=== PATIENT | female | born 1935 | race Caucasian/White ===

== ENCOUNTER 2017-06-03 15:18 | Emergency (ER) | payer MEDICARE, OTHER ==
[~2017-06-03] VITALS: Ht 162.6 cm; Wt 58.7 kg
[2017-06-03 15:26] VITALS: BP 128/60; PULSE 82; RESP 18; TEMP 97.6; O2SAT 97
[2017-06-03] MEDS ORDERED: MECLIZINE HCL 25 MG TAB PO ONE (16:30)
[2017-06-03] MEDS ORDERED: CALC1TAB87 PO (16:42)
[2017-06-03] MEDS ORDERED: ATOR20TA15 PO (16:42)
[2017-06-03] MEDS ORDERED: IRBE300T11 PO (16:42)
[2017-06-03] MEDS ORDERED: PANT40TA3 PO (16:42)
[2017-06-03] MEDS ORDERED: ESCI10TA PO (16:42)
[2017-06-03] MEDS ORDERED: LEVO75TA3 PO (16:42)
--- NOTE | 2017-06-03 17:43 | RADRPT ---
EXAM DATE/TIME: 06/03/2017 17:20 [place] COMPARISON: No previous studies available for comparison. INDICATIONS : Fall. New onset nausea. RADIATION DOSE: 62.79 CTDIvol (mGy) MEDICAL HISTORY : Hypercholesterolemia. Hypertension. Gastroesophageal reflux disease.Depression. SURGICAL HISTORY : Hysterectomy.Appendectomy. ENCOUNTER: Initial ACUITY: 3 days PAIN SCALE: 2/10 LOCATION: Left brow area. TECHNIQUE: Multiple contiguous axial images were obtained of the head. Using automated exposure control and adj ustment of the mA and/or kV according to patient size, radiation dose was kept as low as reasonably a chievable to obtain optimal diagnostic quality images. DICOM format image data is available electro nically for review and comparison. FINDINGS: CEREBRUM: The ventricles are normal for age. No evidence of midline shift, mass lesion, hemorrhage or acute in farction. No extra-axial fluid collections are seen. POSTERIOR FOSSA: The cerebellum and brainstem are intact. The 4th ventricle is midline. The cerebellopontine angle i s unremarkable. EXTRACRANIAL: The visualized portion of the orbits is intact. SKULL: The calvaria is intact. No evidence of skull fracture. CONCLUSION: No acute disease. No evidence of acute infarct, hemorrhage, mass or edema. Jose Manuel Sykes MD on June 03, 2017 at 17:40 Board Certified Radiologist. This report was verified electronically.
[2017-06-03] MEDS ORDERED: MECL-62 PO (17:56)
--- NOTE | 2017-06-03 17:56 | PD ---
HPI Chief Complaint: Headache Time Seen by Provider: 16:19 Travel History International Travel<30 days: No Contact w/Intl Traveler<30days: No Traveled to known affect area: No History of Present Illness HPI This is an 81-year-old female who presents to the emergency department having had a fall 3 days ago hitting her head on the left side with a persistent headache, dull, mild, intermittent, associated with dizziness and lightheadedness. She is not vomited. She didn't lose consciousness. She's been putting off coming to the emergency department because her granddaughter had an event she really wanted to go to. She is not on any blood thinners. PFSH Past Medical History Depression: Yes High Cholesterol: Yes GERD: Yes Hypertension: Yes Thyroid Disease: Yes ?: Not Past Surgical History Appendectomy: Yes Hysterectomy: Yes Social History Alcohol Use: No Tobacco Use: No Substance Use: No Allergies-Medications (Allergen,Severity, Reaction): Uncoded Allergies: intravol (Allergy, Unknown, 06/03/17) Reported Meds & Prescriptions Reported Meds & Active Scripts Active Reported Atorvastatin (Atorvastatin Calcium) 20 Mg Tab 20 Mg PO HS Pantoprazole (Pantoprazole Sodium) 40 Mg Tab 40 Mg PO BID Levothyroxine (Levothyroxine Sodium) 75 Mcg Tab 75 Mcg PO DAILY Irbesartan 300 Mg Tab 300 Mg PO DAILY Escitalopram (Escitalopram Oxalate) 10 Mg Tab 10 Mg PO DAILY Calcium 600 with Vitamin D (Calcium Carbonate-Cholecalciferol) 600-400 mg-Unit Tab 1 Tab PO DAILY Review of Systems Except as stated in HPI: all other systems reviewed are Neg Physical Exam Narrative GENERAL:Well appearing, no acute distress SKIN: Focused skin assessment warm and dry. HEAD: Atraumatic. Normocephalic. EYES: Pupils equal and round. No injection or drainage. ENT: Moist mucous membranes NECK: Trachea midline. CARDIOVASCULAR: Regular rate and rhythm. No murmur appreciated. RESPIRATORY: Clear to auscultation. Breath sounds equal bilaterally. GASTROINTESTINAL: Abdomen soft, non-tender, nondistended. MUSCULOSKELETAL: No obvious deformities. NEUROLOGICAL: Awake and alert. No obvious cranial nerve deficits. No dysarthria or aphasia. No upper or lower extremity drift. No upper extremity ataxia. PSYCHIATRIC: Appropriate mood and affect; insight and judgment normal. Data Data Last Documented VS Vital Signs Date Time Temp Pulse Resp B/P (MAP) Pulse Ox O2 Delivery O2 Flow Rate FiO2 06/03/17 15:26 97.6 82 18 128/60 (82) [address] Brain W/O Iv Contrast(Rout) (06/03/17 ) Meclizine (Antivert) (06/03/17 16:30) MDM Medical Decision Making Medical Screen Exam Complete: Yes Emergency Medical Condition: Yes Interpretation(s) Afebrile, no tachycardia, normotensive CT head: No intracranial hemorrhage Differential Diagnosis Concussion, subdural hematoma, vertigo, subarachnoid hemorrhage Narrative Course This is an 81-year-old female who presents to the emergency department having had a closed head injury 4 days ago and some subsequent vertigo. She has a normal neurologic exam. Her symptoms improved with meclizine. CT of the head is unremarkable. I think she is safe for discharge. Diagnosis Primary Impression: Closed head injury Qualified Codes: S09.90XA - Unspecified injury of head, initial encounter Patient Instructions: General Instructions Additional Instructions: If you develop severe worsening headache, persistent vomiting, numbness, weakness, difficulty walking or difficulty talking return to the emergency department immediately. Med/Other Pt SpecificInfo: Prescription(s) given Scripts Meclizine (Meclizine) 25 Mg Tab 25 MG PO TID Y for VERTIGO, #15 TAB 0 Refills Prov: Marni Perez MD 06/03/17 Disposition: 01 DISCHARGE HOME Condition: Stable Marni Perez MD Jun 03, 2017 17:56
== END 2017-06-03 18:33 | disposition home or self-care (01) ==
LOC: PHED 15:18
DX: S09.90XA Unspecified injury of head, initial encounter (principal); I10 Essential (primary) hypertension; W19.XXXA Unspecified fall, initial encounter
CPT/HCPCS: 70450